=== PATIENT | female | born 1980 | race Caucasian/White ===

== ENCOUNTER 2019-11-15 16:09 | Emergency (ER) | payer OTHER, SELFPAY ==
[2019-11-15 16:55] VITALS: BP 125/87; PULSE 89; RESP 22; TEMP 37.2; O2SAT 100
--- NOTE | 2019-11-15 18:11 | ED.GENADULT ---
HPI - General Adult General Chief complaint: Upper Respiratory Infection Stated complaint: asthma issues Time Seen by Provider: 11/15/19 18:11 Source: patient and RN notes reviewed Mode of arrival: ambulatory Limitations: no limitations History of Present Illness HPI narrative: 39-year-old female presents with complains of dry cough and wheezing for 7 days. Zyrtec, Singulair, Albuterol nebulizer, and inhaler with little relief. History of Asthma and Allergies. Three-weeks ago completed a round of steroids with relief. Constant dry cough with chest congestion. Rhinorrhea and nasal congestion. Denies sore throat. No high fevers, drooling, neck or throat swelling. No chest pain or shortness of breath. Exacerbation factors consist of smoke exposure. Denies nausea, vomiting, and abdominal pain. Tolerating liquids well. Lilly denies being , LMP 3 weeks ago. Some parts of this dictation were generated by voice recognition software and may contain typographical and/or grammatical inaccuracies. Related Data Home Medications Medication Instructions Recorded Confirmed Zyrtec 11/15/19 albuterol sulfate 11/15/19 cyclobenzaprine 11/15/19 fluticasone propionate 11/15/19 montelukast 11/15/19 Allergies Allergy/AdvReac Type Severity Reaction Status Date / Time No Known Allergies Allergy Verified 11/15/19 17:23 Review of Systems Review of Systems: Narrative: CONSTITUTIONAL: Denies fever, chills, sweats. EYES: Denies visual changes, redness, discharge. ENT: Denies rhinorrhea, congestion, sore throat, otalgia. CARDIOVASCULAR: Denies chest pain, palpitations, edema. RESPIRATORY: Denies dyspnea. Complains of dry cough, wheezing. GASTROINTESTINAL: Denies abdominal pain, nausea, vomiting, diarrhea. GENITOURINARY: Denies dysuria, hematuria, abnormal discharge. SKIN: Denies rash or itching. MUSCULOSKELETAL: Denies acute back pain, joint pain, or myalgia. NEUROLOGIC: Denies numbness or focal weakness. PSYCHIATRIC: Denies anxiety or depression. All systems reviewed & are unremarkable except as noted in HPI and below. [facility] Past Medical History Medical History (Updated 11/16/19 @ 00:00 by Antonia Silverio) Allergies Asthma Surgical History Surgical History (Updated 11/15/19 @ 18:17 by CONCHA Fernandez) H/O section Family History Family History (Updated 11/15/19 @ 18:18 by CONCHA Fernandez) Other No significant family history Other No significant family history Social History Social History (Updated 11/15/19 @ 18:18 by CONCHA Fernandez) Smoking status: Former smoker Second hand tobacco smoke exposure: Yes Additional smoking assessment comments: Stop smoking 4 years ago Alcohol intake: current Alcohol use details: Rarely Substance use: never Occupation/Education: occupation Gender identity (if verbalized by the patient): Female Comments At time of signature, agree with nurse past medical, surgical, social, and family history. There is no relevant family history pertinent to the presenting complaint. Exam Narrative: Exam Narrative: GENERAL: This is a well-nourished, well-developed patient, in no apparent distress. Talks in full sentences and ambulates with steady gait without dyspnea. HEAD: normocephalic, atraumatic. EYES: PERRL. Sclera clear/white. Vision is grossly intact. EARS: External ears normal, auditory canals clear and without drainage, TMs normal without perforation. Hearing grossly intact. NOSE: External nose normal with no obvious nasal discharge, nares with mild redness and enlarged turbinates, clear rhinorrhea. THROAT: Mucous membranes moist, posterior pharynx clear. Mild erythema, tonsils normal. NECK: Neck supple, non-tender without lymphadenopathy, masses or thyromegaly. CARDIOVASCULAR: Regular rate and rhythm without murmurs, gallops, or rubs. RESPIRATORY: Wheezes to auscultation in all cunningham with decrease air movement.
[2019-11-15] MEDS: IPRATROPIUM BR 0.02% INH SOLN 0.5 MG/2.5 ML VIAL INHALATION ×2 (18:38→19:16)
[2019-11-15] MEDS: ALBUTEROL SULFATE NEB 2.5 MG/3 ML INH INHALATION ×2 (18:39→19:16)
[2019-11-15] MEDS: predniSONE 20 MG TABLET 60 MG PO (18:39)
== END 2019-11-15 20:04 | disposition home or self-care (01) ==
PROVIDERS: Emergency Provider Nurse Practitioner Family
DX: J45.909 Unspecified asthma, uncomplicated (principal); Z87.891 Personal history of nicotine dependence
CPT/HCPCS: 94640; 99204; G0463; J7512

== ENCOUNTER 2020-02-07 13:23 | Emergency (ER) | payer OTHER, SELFPAY ==
[2020-02-07 13:35] VITALS: BP 120/80; PULSE 90; RESP 16; TEMP 36.8; O2SAT 97
--- NOTE | 2020-02-07 13:57 | ED.URI ---
HPI - URI/Sore Throat General Chief Complaint: Upper Respiratory Infection Stated Complaint: sob and wheezing Time Seen by Provider: 02/07/20 13:58 Source: patient and RN notes reviewed Mode of arrival: ambulatory Limitations: no limitations History of Present Illness HPI Narrative: 39-year-old female presents with concern for wheezing and shortness of breath. Reports a history of asthma. Reports she has been using her controller medicine, her nebulizer and her rescue inhaler. Reports using her nebulizer every 4-6 hours. Reports she had an exacerbation several weeks ago for which she was on a round of prednisone. Reports she also takes antihistamines for seasonal allergies. She denies fever, body aches, rhinorrhea, nasal congestion, malaise. MD elicited complaint: other (Shortness of breath) Related Data Home Medications Medication Instructions Recorded Confirmed albuterol sulfate [ProAir HFA] 2 puff INHALATION QID PRN 02/07/20 02/07/20 cyclobenzaprine 10 mg PO TID PRN 02/07/20 02/07/20 fluticasone propion-salmeterol 1 inh INHALATION BID 02/07/20 02/07/20 ipratropium-albuterol 3 ml INHALATION QID PRN 02/07/20 02/07/20 montelukast 10 mg PO HS 02/07/20 02/07/20 Allergies Allergy/AdvReac Type Severity Reaction Status Date / Time No Known Allergies Allergy Verified 02/07/20 14:03 Review of Systems Review of Systems: Narrative: CONSTITUTIONAL: Denies malaise, chills, sweats, or fever. EYES: Denies visual changes, redness, or discharge. ENT: Denies rhinorrhea, congestion, sinus pain, otalgia and sore throat. CARDIOVASCULAR: Denies chest pain, palpitations, or edema. RESPIRATORY: Reports cough, wheezing, dyspnea. GASTROINTESTINAL: Denies abdominal pain, nausea, vomiting, diarrhea SKIN: Denies rash or itching. MUSCULOSKELETAL: Denies myalgia. NEUROLOGIC: Denies headache. All systems reviewed & are unremarkable except as noted in HPI and below PMFSH Past Medical History Medical History (Updated 02/07/20 @ 14:07 by Dayna Gandhi NP) Allergies Asthma Surgical History Surgical History (Updated 11/15/19 @ 18:17 by CONCHA Fernandez) H/O section Family History Family History (Updated 11/15/19 @ 18:18 by CONCHA Fernandez) Other No significant family history Other No significant family history Social History Social History (Updated 11/15/19 @ 18:18 by CONCHA Fernandez) Smoking status: Former smoker Second hand tobacco smoke exposure: Yes Additional smoking assessment comments: Stop smoking 4 years ago Alcohol intake: current Substance use: never Gender identity (if verbalized by the patient): Female Comments At time of signature, agree with nursing past medical, surgical, social and family history. There is no relevant family history pertinent to the presenting complaint Exam Narrative: Exam Narrative: GENERAL: Well-appearing, well-nourished, and in no acute distress. HEAD: Normocephalic EYES: PERRLA, conjunctivae clear ENT: Nares clear, turbinates pink, clear discharge. Mucous membranes moist. TM pearly gonzalez with dull light reflex bilaterally; no tragal tenderness. Oropharynx not erythematous without lesions. Tonsils not enlarged and without exudate, no drooling, no hoarseness, no trismus, uvula midline. NECK: Supple. CHEST: Scattered inspiratory and expiratory wheeze, otherwise clear to auscultation, breath sounds equal. No rhonchi, rales, or stridor. No respiratory distress, speaks in full sentences. HEART: Regular rate and rhythm. No murmur heard. SKIN: Warm, dry, no rash. NEURO: Alert and oriented x3. PSYCH: Normal mood and affect Course Course Emergency Course: Patient is aware of diagnosis, understands and agrees to treatment plan. Anticipatory guidance given. Patient agrees to follow-up as directed and is aware of reasons to seek care at the emergency department. Portions of this record may have been created with voice recognition software Vital Signs
== END 2020-02-07 14:10 | disposition home or self-care (01) ==
PROVIDERS: Emergency Provider Nurse Practitioner
DX: J45.41 Moderate persistent asthma with (acute) exacerbation (principal); Z87.891 Personal history of nicotine dependence
CPT/HCPCS: 99213; G0463

== ENCOUNTER 2020-04-14 11:23 | Emergency (ER) | payer OTHER, SELFPAY ==
[2020-04-14 11:32] VITALS: BP 129/91; PULSE 88; RESP 14; TEMP 36.8; O2SAT 99
--- NOTE | 2020-04-14 11:50 | ED.URI ---
HPI - URI/Sore Throat General Chief Complaint: Upper Respiratory Infection Stated Complaint: Asthma Time Seen by Provider: 04/14/20 11:50 Source: patient Mode of arrival: ambulatory Limitations: no limitations History of Present Illness HPI Narrative: Lilly Gordon is a 39 yo female with a PMH of asthma who comes to express care with asthma exacerbation x 4 days. She has had as well for a couple of years and is taking inhalers on a regular basis. With her doctors office because about 3-4 times a year with seasonal changes she develops asthma exacerbation. Doctors office told her to go to the ER or come to an urgent care to try to get steroids Related Data Home Medications Medication Instructions Recorded Confirmed albuterol sulfate [ProAir HFA] 2 puff INHALATION QID PRN 02/07/20 04/14/20 cyclobenzaprine 10 mg PO TID PRN 02/07/20 04/14/20 fluticasone propion-salmeterol 1 inh INHALATION BID 02/07/20 04/14/20 ipratropium-albuterol 3 ml INHALATION QID PRN 02/07/20 04/14/20 montelukast 10 mg PO HS 02/07/20 04/14/20 cetirizine 10 mg PO DAILY 04/14/20 04/14/20 Allergies Allergy/AdvReac Type Severity Reaction Status Date / Time No Known Allergies Allergy Verified 04/14/20 11:38 Review of Systems Review of Systems: Narrative: CONSTITUTIONAL: Denies fever, chills, sweats. EYES: Denies visual changes, redness, discharge. ENT: Denies rhinorrhea, congestion, sore throat, otalgia. CARDIOVASCULAR: Denies chest pain, palpitations, edema. RESPIRATORY: Denies dyspnea, has wheezing, mild dry cough GASTROINTESTINAL: Denies abdominal pain, nausea, vomiting, diarrhea. GENITOURINARY: Denies dysuria, hematuria, abnormal discharge SKIN: Denies rash or itching. NEUROLOGIC: Denies numbness, or focal weakness. PSYCHIATRIC: Denies anxiety or depression. [facility] Past Medical History Medical History Allergies Asthma Surgical History Surgical History H/O section Family History Family History Other No significant family history Other No significant family history Social History Social History Smoking status: Former smoker Second hand tobacco smoke exposure: Yes Additional smoking assessment comments: Stop smoking 4 years ago Alcohol intake: current Substance use: never Gender identity (if verbalized by the patient): Female Comments At time of signature, I agree with nursing past medical, surgical, social and family history. There is no relevant family history pertinent to the presenting complaint. Blood pressure elevated patient is having an asthma attack and feels that shortness of breath and anxiety is causing increased BP. Sees PCP regularly Exam Narrative: Exam Narrative: GENERAL: This is a well-nourished, well-developed patient, in mild distress. HEAD: normocephalic, atraumatic. EYES: Sclera clear/white. Vision is grossly intact. EARS: External ears normal, Hearing grossly intact. NOSE: External nose normal without nasal discharge, nares without redness, no rhinorrhea. THROAT: Mucous membranes moist, NECK: Neck supple, non-tender CARDIOVASCULAR: Regular rate and rhythm without murmurs, gallops, or rubs. RESPIRATORY: Coarse to auscultation. Fine wheezing in all cunningham, no rales, or rhonchi. GASTROINTESTINAL: Abdomen soft, non-tender, SKIN: warm, intact with no suspicious lesions or rash, good texture and turgor. NEURO: awake, alert, and oriented to person, place and time. There were no obvious focal neurologic abnormalities. Steady gait EXTREMITIES: Normal range of motion. BACK: Nontender without deformity Course Course Emergency Course: Given 60 mg of prednisone p.o. here Started on prednisone 40 mg p.o. daily x5 days Patient continue with other inhalers and rescue inhal
[2020-04-14] MEDS: predniSONE 20 MG TABLET 60 MG PO (11:56)
== END 2020-04-14 12:02 | disposition home or self-care (01) ==
PROVIDERS: Emergency Provider Nurse Practitioner
DX: J45.909 Unspecified asthma, uncomplicated (principal)
CPT/HCPCS: 99213; G0463; J7512

== ENCOUNTER 2020-05-07 12:13 | Emergency (ER) | payer OTHER, SELFPAY ==
[2020-05-07 12:22] VITALS: BP 113/73; PULSE 95; RESP 16; TEMP 36.9; O2SAT 97
--- NOTE | 2020-05-07 12:46 | ED.GENADULT ---
HPI - General Adult General Chief complaint: Upper Respiratory Infection Stated complaint: SOB Time Seen by Provider: 05/07/20 12:46 Source: patient and RN notes reviewed Mode of arrival: ambulatory Limitations: no limitations History of Present Illness HPI narrative: This is a 39 years old female presented office for evaluations of asthma flare for the last two days. She is unsure what triggered her symptoms. She does housecleaning for living. There it possible that her asthma triggered by dust. One of her client has dog; but she has been cleaning his house for years with no problem. She has been using her prescribed medication for asthma. She attempt to call her doctor for follow-up but she does not have an appointment for an another week or two from today. Related Data Home Medications Medication Instructions Recorded Confirmed albuterol sulfate [ProAir HFA] 2 puff INHALATION QID PRN 02/07/20 05/07/20 fluticasone propion-salmeterol 1 inh INHALATION BID 02/07/20 05/07/20 ipratropium-albuterol 3 ml INHALATION QID PRN 02/07/20 05/07/20 montelukast 10 mg PO HS 02/07/20 05/07/20 cetirizine 10 mg PO DAILY 04/14/20 05/07/20 Allergies Allergy/AdvReac Type Severity Reaction Status Date / Time No Known Allergies Allergy Verified 05/07/20 12:34 Review of Systems Review of Systems: Narrative: CONSTITUTIONAL: Denies fever, chills EYES: Denies visual changes, redness, discharge. ENT: Denies rhinorrhea, congestion, sore throat CARDIOVASCULAR: Denies chest pain, palpitation RESPIRATORY: Reports dyspnea, wheezing GASTROINTESTINAL: Denies abdominal pain, nausea, vomiting, diarrhea. SKIN: Denies rash MUSCULOSKELETAL: Denies acute back pain NEUROLOGIC: Denies lightheaded All other systems reviewed are negative, except as documented in HPI. [facility] Past Medical History Medical History Allergies Asthma Surgical History Surgical History H/O section Family History Family History Other No significant family history Other No significant family history Social History Social History Smoking status: Former smoker Second hand tobacco smoke exposure: Yes Additional smoking assessment comments: Stop smoking 4 years ago Alcohol intake: current Substance use: never Gender identity (if verbalized by the patient): Female Comments At time of signature, I agree with nursing past medical, surgical, social and family history. There is no relevant family history pertinent to the presenting complaint. Exam Narrative: Exam Narrative: GENERAL: This is a well-nourished, well-developed patient, in no apparent distress. EARS: External ears normal, auditory canals clear and without drainage, TMs normal without perforation. Hearing grossly intact. NOSE: External nose normal with no obvious nasal discharge, nares without redness, no rhinorrhea. THROAT: Mucous membranes moist, posterior pharynx clear. NECK: Neck supple, non-tender without lymphadenopathy, masses or thyromegaly. CARDIOVASCULAR: Regular rate and rhythm without murmurs, gallops, or rubs. RESPIRATORY: Expiratory wheezing noted throughout. Breath sounds equal bilaterally. No use of accessory muscle. Patient able to talk in complete sentences. GASTROINTESTINAL: Abdomen soft, non-tender, nondistended. Bowel sounds are active. No hepato-splenomegaly, or palpable masses. No guarding. SKIN: warm, intact with no suspicious lesions or rash, good texture and turgor. NEURO: awake, alert, and oriented to person, place and time. There were no obvious focal neurologic abnormalities. Steady gait [place] Coma Scale Eye Opening: Spontaneous 4 [place] Coma Scale Motor: Obeys Commands 6 [place] Coma Scale Verbal: Oriented 5 Course Vital Signs Vital signs:
== END 2020-05-07 13:01 | disposition home or self-care (01) ==
PROVIDERS: Emergency Provider Nurse Practitioner
DX: J45.21 Mild intermittent asthma with (acute) exacerbation (principal)
CPT/HCPCS: 99213; G0463

== ENCOUNTER 2020-09-19 16:56 | Emergency (ER) | payer OTHER, SELFPAY ==
[2020-09-19 17:00] VITALS: BP 121/88; PULSE 94; RESP 20; TEMP 36.4; O2SAT 98
--- NOTE | 2020-09-19 17:30 | ED.SOB ---
HPI - SOB/Dyspnea General Chief Complaint: Shortness of Breath/Dyspnea Stated Complaint: wheezing/congested Time Seen by Provider: 09/19/20 17:30 Source: patient Mode of arrival: ambulatory Limitations: no limitations History of Present Illness HPI Narrative: 39 year old female who presents to [facility] care with complaints of short of breath with wheezing since yesterday with history of asthma, patient states about 2 hours prior to arrival she did do an breathing treatment using Atrovent at home which did help some. Patient denies any fever chills or sweats, occasional cough with some light yellow mucus states no sore throat, ear pain or acute nasal drainage or congestion, afebrile. Respirations 20 at rest with SaO2 98% on room air. MD elicited complaint: shortness of breath Pertinent past history: asthma Onset (ago): day(s) (1) Severity: moderate Exacerbating factors: exertion Known history of: asthma Associated symptoms: wheezing Treatment prior to arrival: other (breathing treatment) Related Data Home Medications Medication Instructions Recorded Confirmed albuterol sulfate [ProAir HFA] 2 puff INHALATION QID PRN 02/07/20 09/19/20 montelukast 10 mg PO HS 02/07/20 09/19/20 cetirizine 10 mg PO DAILY 04/14/20 09/19/20 albuterol sulfate 2.5 mg CONTINUOUS NEBULIZATION 09/19/20 09/19/20 Q4-6H PRN cholecalciferol (vitamin D3) 25 mcg PO DAILY 09/19/20 09/19/20 [Vitamin D3] citalopram 20 mg PO DAILY 09/19/20 09/19/20 ergocalciferol (vitamin D2) 1,250 mcg PO WEEKLY 09/19/20 09/19/20 fluticasone propion-salmeterol 1 inh INHALATION Q12H 09/19/20 09/19/20 [Wixela Inhub] ipratropium bromide 0.5 ml CONTINUOUS NEBULIZATION 09/19/20 09/19/20 Q4-6H PRN Allergies Allergy/AdvReac Type Severity Reaction Status Date / Time No Known Allergies Allergy Verified 09/19/20 17:14 Review of Systems Review of Systems: Narrative: CONSTITUTIONAL: Denies fever, chills, or sweats. EYES: Denies visual changes, redness, or discharge. ENT: Denies rhinorrhea, congestion, sore throat, or otalgia. CARDIOVASCULAR: Denies chest pain, palpitations, or edema. RESPIRATORY: occasional cough with some wheezing or dyspnea. GASTROINTESTINAL: Denies abdominal pain, nausea, vomiting, or diarrhea. GENITOURINARY: Denies dysuria or hematuria. SKIN: Denies rash or itching. MUSCULOSKELETAL: Denies back pain, joint pain, or myalgia. NEUROLOGIC: Denies headache, numbness, or weakness. PSYCHIATRIC: Denies anxiety or depression. All systems reviewed & are unremarkable except as noted in HPI and below PMFSH Past Medical History Medical History (Updated 09/19/20 @ 18:21 by Yelitza Horton NP) Allergies Asthma Surgical History Surgical History (Updated 09/19/20 @ 17:32 by Yelitza Horton NP) H/O section Hx of tonsillectomy Family History Family History Other No significant family history Other No significant family history Social History Social History Smoking status: Former smoker Second hand tobacco smoke exposure: Yes Additional smoking assessment comments: Stop smoking 4 years ago Alcohol intake: current Substance use: never Gender identity (if verbalized by the patient): Female Comments At time of signature, agree with nursing past medical, surgical, social and family history. There is no relevant family history pertinent to the presenting complaint Exam Narrative: Exam Narrative: GENERAL: Well-appearing, well-nourished, and in no acute distress. HEAD: Normocephalic, atraumatic. EYES: PERRLA and EOMI. ENT: Nares clear, no rhinorrhea or epistaxis. Mucous membranes moist.TM's normal with good light reflex, throat pink with no acute redness or swelling,no enlargement of tonsils NECK: Supple.no lymphadenopathy CHEST: decreased breath sounds with occasional scattered wheeze on auscultation. No acute respira
[2020-09-19] MEDS: IPRATROPIUM BR 0.02% INH SOLN 0.5 MG/2.5 ML VIAL INHALATION (17:46)
[2020-09-19] MEDS: ALBUTEROL SULFATE NEB 2.5 MG/3 ML INH INHALATION (17:46)
[2020-09-19 18:27] VITALS: O2SAT 97
== END 2020-09-19 18:27 | disposition home or self-care (01) ==
PROVIDERS: Emergency Provider Registered Nurse; PCP Nurse Practitioner Adult Health
DX: J45.41 Moderate persistent asthma with (acute) exacerbation (principal); Z87.891 Personal history of nicotine dependence
CPT/HCPCS: 94640; 99213; G0463

== ENCOUNTER 2020-11-15 11:24 | Emergency (ER) | payer OTHER, SELFPAY ==
--- NOTE | ~2020-11-15 | XR_ITS ---
EXAMINATION: XR chest 2V 11/15/2020 11:58 INDICATION: Wheezing and shortness of breath. Asthma. PROCEDURE: 2 view chest COMPARISON: No prior studies for comparison. FINDINGS: The lungs are clear. The cardiomediastinal silhouette is within normal limits. There are no pleural effusions. There is no pneumothorax suspected. IMPRESSION: 1: NO ACUTE CARDIOPULMONARY DISEASE. Reviewed, dictated and finalized at location B. [employer]
[2020-11-15 11:40] VITALS: BP 132/82; PULSE 95; RESP 16; TEMP 36.7; O2SAT 97
--- NOTE | 2020-11-15 12:01 | ED.URI ---
HPI - URI/Sore Throat General Chief Complaint: Upper Respiratory Infection Stated Complaint: Cough/Rattling in Chest Source: patient Mode of arrival: ambulatory Limitations: no limitations History of Present Illness HPI Narrative: Patient is a 40-year-old female who presents complaining of increased wheezing x1 day. Patient reports a history of asthma. Patient reports using nebulizer as well as inhalers as directed. Patient reports increased wheezing with dry cough over the past day. She reports asthma exacerbations in the past, denies hospitalizations for asthma in the past. She denies fever, chills, sore throat, body aches chest pain or shortness of breath. MD elicited complaint: other (Asthma) Related Data Home Medications Medication Instructions Recorded Confirmed albuterol sulfate [ProAir HFA] 2 puff INHALATION QID PRN 02/07/20 11/15/20 montelukast 10 mg PO HS 02/07/20 11/15/20 cetirizine 10 mg PO DAILY 04/14/20 11/15/20 albuterol sulfate 2.5 mg CONTINUOUS NEBULIZATION 09/19/20 11/15/20 Q4-6H PRN cholecalciferol (vitamin D3) 25 mcg PO DAILY 09/19/20 11/15/20 [Vitamin D3] citalopram 20 mg PO DAILY 09/19/20 11/15/20 ergocalciferol (vitamin D2) 1,250 mcg PO WEEKLY 09/19/20 11/15/20 fluticasone propion-salmeterol 1 inh INHALATION Q12H 09/19/20 11/15/20 [Wixela Inhub] ipratropium bromide 0.5 ml CONTINUOUS NEBULIZATION 09/19/20 11/15/20 Q4-6H PRN Allergies Allergy/AdvReac Type Severity Reaction Status Date / Time No Known Allergies Allergy Verified 11/15/20 11:48 Review of Systems Review of Systems: Narrative: CONSTITUTIONAL: Denies fever, chills, or sweats. EYES: Denies visual changes, redness, or discharge. ENT: Denies rhinorrhea, congestion, sore throat, or otalgia. CARDIOVASCULAR: Denies chest pain, palpitations, or edema. RESPIRATORY: Reports cough and wheezing GASTROINTESTINAL: Denies abdominal pain, nausea, vomiting, or diarrhea. GENITOURINARY: Denies dysuria or hematuria. SKIN: Denies rash or itching. MUSCULOSKELETAL: Denies back pain, joint pain, or myalgia. NEUROLOGIC: Denies headache, numbness, dizziness, or weakness. PSYCHIATRIC: Denies anxiety or depression. [facility] Past Medical History Medical History Allergies Asthma Surgical History Surgical History H/O section Hx of tonsillectomy Family History Family History Other No significant family history Other No significant family history Social History Social History Smoking status: Former smoker Second hand tobacco smoke exposure: Yes Additional smoking assessment comments: Stop smoking 4 years ago Alcohol intake: current Substance use: never Gender identity (if verbalized by the patient): Female Comments At the time of signature, I have reviewed and agree with nursing past medical, surgical, social, and family history unless otherwise noted. Please see nursing chart for further information. There is no relevant family history pertinent to the presenting complaint. Exam Narrative: Exam Narrative: GENERAL: Well-appearing, well-nourished, and in no acute distress. HEAD: Normocephalic, atraumatic. EYES: EOMI. No redness or drainage. Conjunctiva are normal. ENT: Mucous membranes pink and moist. NECK: Supple. No lymphadenopathy. CHEST: No respiratory distress. Diminished lung sounds bilaterally, right upper and lower audible wheeze HEART: Regular rate and rhythm. EXTREMITIES: Normal range of motion. No edema. SKIN: Warm, dry, no rash. NEURO: No focal deficits. Alert and oriented x3. Gait steady. PSYCH: Normal affect. No signs of depression or anxiety. Course Vital Signs Vital signs: Vital Signs Temperature 36.7 C 11/15/20 11:40 Pulse Rate 95 11/15/20 11:40 Respiratory R
[2020-11-16 18:19] LABS: SARS-CoV-2 RNA PCR Negative
== END 2020-11-15 12:20 | disposition home or self-care (01) ==
PROVIDERS: Emergency Provider Nurse Practitioner; PCP Nurse Practitioner Adult Health
DX: J45.901 Unspecified asthma with (acute) exacerbation (principal); Z20.822 Contact with and (suspected) exposure to COVID-19; Z87.891 Personal history of nicotine dependence
CPT/HCPCS: 71046; 99213; C9803; G0463; U0003; U0005

== ENCOUNTER 2022-04-26 11:18 | Emergency (ER) | payer OTHER, SELFPAY ==
[2022-04-26 11:22] VITALS: BP 137/87; PULSE 95; RESP 18; TEMP 36.7; O2SAT 95
--- NOTE | 2022-04-26 11:33 | ED.URI ---
HPI - URI/Sore Throat General Chief Complaint: Upper Respiratory Infection Stated Complaint: wheezing/hx of asthma Time Seen by Provider: 04/26/22 11:32 Source: patient and RN notes reviewed Mode of arrival: ambulatory Limitations: no limitations History of Present Illness HPI Narrative: 41-year-old female with a history of eosinophilic asthma presented for complaint of increasing shortness of breath and wheezing since last night. Endorses waking in the night requiring her rescue inhaler, and states this morning while getting ready for work she became more short of breath and felt she needed to rest; she took an albuterol neb treatment at that time. She endorses she was hospitalized last month for asthma exacerbation. Has been having exacerbations approximately every 3 months for which she is following with manager human resources and is scheduled next month. Compliant with Wyxela and allergy medications. MD elicited complaint: cough Related Data Home Medications Medication Instructions Recorded Confirmed albuterol sulfate 90 mcg/actuation 2 puff inhalation QID PRN 02/07/20 04/26/22 aerosol inhaler (ProAir HFA) Shortness Of Breath Or Wheezing montelukast 10 mg tablet 10 mg PO HS 02/07/20 04/26/22 cetirizine 10 mg capsule 10 mg PO DAILY 04/14/20 04/26/22 albuterol sulfate 2.5 mg/3 mL 2.5 mg continuous nebulization 09/19/20 04/26/22 (0.083 %) solution for nebulization Q4-6H PRN Shortness Of Breath Or Wheezing cholecalciferol (vitamin D3) 25 25 mcg PO DAILY 09/19/20 04/26/22 mcg (1,000 unit) tablet (Vitamin D3) citalopram 20 mg tablet 20 mg PO DAILY 09/19/20 04/26/22 ergocalciferol (vitamin D2) 1,250 1,250 mcg PO WEEKLY 09/19/20 04/26/22 mcg (50,000 unit) capsule fluticasone 500 mcg-salmeterol 50 1 inh inhalation Q12H 09/19/20 04/26/22 mcg/dose blistr powdr for inhalation (Wixela Inhub) ipratropium bromide 0.02 % 0.5 ml continuous nebulization 09/19/20 04/26/22 solution for inhalation Q4-6H PRN Shortness Of Breath Or Wheezing citalopram 20 mg tablet 20 mg PO DAILY 04/26/22 04/26/22 fluticasone 250 mcg-salmeterol 50 1 inh inhalation Q12H 04/26/22 04/26/22 mcg/dose blistr powdr for inhalation (Lorenatnyator Inhub) Allergies Allergy/AdvReac Type Severity Reaction Status Date / Time No Known Allergies Allergy Verified 04/26/22 11:35 Review of Systems Review of Systems: CONSTITUTIONAL:Denies malaise, chills, sweats, fever EYES: Denies visual changes, redness, or discharge ENT: Denies rhinorrhea, congestion, sinus pain, otalgia, sore throat CARDIOVASCULAR: Denies chest pain, palpitations, edema RESPIRATORY: Denies cough, post nasal drainage. Reports dyspnea GASTROINTESTINAL: Denies abdominal pain, nausea, vomiting, diarrhea SKIN: Denies rash or itching MUSCULOSKELETAL: denies myalgia NEUROLOGIC: Denies headache PMFSH Past Medical History Medical History Allergies Asthma Surgical History Surgical History H/O section Hx of tonsillectomy Family History Family History Other No significant family history Other No significant family history Social History Social History Smoking status: Former smoker Second hand tobacco smoke exposure: Yes Additional smoking assessment comments: Stop smoking 4 years ago Alcohol intake: current Alcohol use details: Rarely Substance use: never Gender identity (if verbalized by the patient): Female Exam Narrative: GENERAL: well-appearing, nontoxic no acute distress. HEAD: Normocephalic EYES: conjunctivae clear ENT: Mucous membranes moist. CHEST: Appears labored, Lungs diminished with audible exp wheezing and inspiratory and expiratory wheezing throughout all cunningham. No respiratory distress, speaks in full sentences
[2022-04-26] MEDS: ALBUTEROL SULFATE NEB 2.5 MG/3 ML INH INHALATION (11:46)
[2022-04-26] MEDS: IPRATROPIUM BR 0.02% INH SOLN 0.5 MG/2.5 ML VIAL INHALATION (11:46)
[2022-04-26 12:16] VITALS: RESP 16; O2SAT 97
== END 2022-04-26 12:26 | disposition home or self-care (01) ==
PROVIDERS: Emergency Provider Nurse Practitioner Family
DX: J45.901 Unspecified asthma with (acute) exacerbation (principal); Z87.891 Personal history of nicotine dependence
CPT/HCPCS: 94640; 99213; G0463

== ENCOUNTER 2022-12-29 16:51 | Emergency (ER) | payer OTHER, SELFPAY ==
[2022-12-29 16:56] VITALS: BP 117/79; PULSE 87; RESP 20; TEMP 37.2; O2SAT 96
--- NOTE | 2022-12-29 17:08 | ED.ASTHMA ---
HPI - Asthma General Chief Complaint: Asthma Stated Complaint: Asthma acting up Time Seen by Provider: 12/29/22 17:09 History of Present Illness HPI Narrative: PATIENT PRESENTS WITH AN ASTHMA FLARE , PATIENT REPORTS HER SYMPTOMS STARTED YESTERDAY , SINCE THEN SHE HAS BEEN DOING HER ABUTERAL NEBS EVERY 4 HOURS PRESCRIBED. NO RESPIRATORY DISTRESS NO FEVER. Related Data Home Medications Medication Instructions Recorded Confirmed albuterol sulfate 90 mcg/actuation 2 puff inhalation QID PRN 02/07/20 12/29/22 aerosol inhaler (ProAir HFA) Shortness Of Breath Or Wheezing montelukast 10 mg tablet 10 mg PO HS 02/07/20 12/29/22 cetirizine 10 mg capsule 10 mg PO DAILY 04/14/20 12/29/22 cholecalciferol (vitamin D3) 25 25 mcg PO DAILY 09/19/20 12/29/22 mcg (1,000 unit) tablet (Vitamin D3) citalopram 20 mg tablet 20 mg PO DAILY 09/19/20 12/29/22 ergocalciferol (vitamin D2) 1,250 1,250 mcg PO WEEKLY 09/19/20 12/29/22 mcg (50,000 unit) capsule fluticasone 500 mcg-salmeterol 50 1 inh inhalation Q12H 09/19/20 12/29/22 mcg/dose blistr powdr for inhalation (Wixela Inhub) Fasenra IV USEASDIRECTD 12/29/22 fluticasone fur. 200 mcg-umeclid 1 ea inhalation DIRECTED 12/29/22 12/29/22 62.5 mcg-vilant 25 mcg inhalat.powder (Trelegy Ellipta) Allergies Allergy/AdvReac Type Severity Reaction Status Date / Time No Known Allergies Allergy Verified 12/29/22 16:53 Review of Systems Review of Systems: CONSTITUTIONAL: DENIES FEVER, CHILLS, OR SWEATS. EYES: DENIES VISUAL CHANGES, REDNESS, OR DISCHARGE. ENT: DENIES RHINORRHEA, CONGESTION, SORE THROAT, OR OTALGIA. CARDIOVASCULAR: DENIES CHEST PAIN, PALPITATIONS, OR EDEMA. RESPIRATORY: DENIES COUGH OR DYSPNEA. GASTROINTESTINAL: DENIES ABDOMINAL PAIN, NAUSEA, VOMITING, OR DIARRHEA. GENITOURINARY: DENIES DYSURIA OR HEMATURIA. SKIN: DENIES RASH OR ITCHING. MUSCULOSKELETAL: DENIES BACK PAIN, JOINT PAIN, OR MYALGIA. NEUROLOGIC: DENIES HEADACHE, NUMBNESS, OR WEAKNESS. PSYCHIATRIC: DENIES ANXIETY OR DEPRESSION. [facility] Past Medical History Medical History Allergies Asthma Surgical History Surgical History H/O section Hx of tonsillectomy Family History Family History Other No significant family history Other No significant family history Social History Social History Smoking status: Former smoker Second hand tobacco smoke exposure: Yes Additional smoking assessment comments: Stop smoking 4 years ago Alcohol intake: current Alcohol use details: Rarely Substance use: never Occupation/Education: occupation Gender identity (if verbalized by the patient): Female Comments AT TIME OF SIGNATURE, AGREE WITH NURSING PAST MEDICAL, SURGICAL, SOCIAL AND FAMILY HISTORY. THERE IS NO RELEVANT FAMILY HISTORY PERTINENT TO THE PRESENTING COMPLAINT Exam Narrative: GENERAL: WELL-APPEARING, WELL-NOURISHED, AND IN NO ACUTE DISTRESS. HEAD: NORMOCEPHALIC, ATRAUMATIC. EYES: PERRLA AND EOMI. ENT: NARES CLEAR, NO RHINORRHEA OR EPISTAXIS. MUCOUS MEMBRANES MOIST. NECK: SUPPLE. CHEST: CLEAR TO AUSCULTATION. NO RESPIRATORY DISTRESS. HEART: REGULAR RATE AND RHYTHM. NO MURMUR HEARD. NORMAL PERIPHERAL PULSES. ABDOMEN: SOFT, NONTENDER, NONDISTENDED, NORMAL ACTIVE BOWEL SOUNDS. EXTREMITIES: NORMAL RANGE OF MOTION. NO EDEMA. SKIN: WARM, DRY, NO RASH. NEURO: NO FOCAL DEFICITS. ALERT AND ORIENTED X3. JESÚS COMA SCALE EYE OPENING: SPONTANEOUS 4 JESÚS COMA SCALE MOTOR: OBEYS COMMANDS 6 JESÚS COMA SCALE VERBAL: ORIENTED 5 JESÚS COMA SCALE TOTAL 15 Course Course Level of Care: Express Care Visit Vital Signs Vital signs: Vital Signs Temperature 37.2 C 12/29/22 16:56 Pulse Rate 87 12/29/22 16:56 Respiratory Rate 20 12/29/22 16:
[2022-12-29] MEDS: methylPREDNISolone SOD SUCC 125 MG VIAL IM (17:17)
== END 2022-12-29 17:20 | disposition home or self-care (01) ==
PROVIDERS: Emergency Provider Nurse Practitioner Family; PCP Nurse Practitioner Family
DX: J45.901 Unspecified asthma with (acute) exacerbation (principal); Z87.891 Personal history of nicotine dependence
CPT/HCPCS: 96372; 99213; G0463; J2930

== ENCOUNTER 2023-01-30 14:39 | Emergency (ER) | payer OTHER, SELFPAY ==
[2023-01-30 14:43] VITALS: BP 122/81; PULSE 96; RESP 16; TEMP 36.6; O2SAT 96
--- NOTE | 2023-01-30 15:06 | ED.URI ---
HPI - URI/Sore Throat General Chief Complaint: Upper Respiratory Infection Stated Complaint: asthma issues Time Seen by Provider: 01/30/23 15:11 Source: patient Mode of arrival: ambulatory Limitations: no limitations History of Present Illness HPI Narrative: 42-year-old female with a history of eosinophilic asthma presenting for complaint of concern for asthma exacerbation. She endorses increased shortness of breath and wheezing since yesterday. Patient uses her rescue inhaler as needed and using Trelegy and taking allergy medications as directed. Also has nebulizer at home and uses as needed. Has been having exacerbations approximately every 3 months for which she is following with service desk analyst and is scheduled next week. Related Data Home Medications Medication Instructions Recorded Confirmed albuterol sulfate 90 mcg/actuation 2 puff inhalation QID PRN 02/07/20 01/30/23 aerosol inhaler (ProAir HFA) Shortness Of Breath Or Wheezing montelukast 10 mg tablet 10 mg PO HS 02/07/20 01/30/23 cetirizine 10 mg capsule 10 mg PO DAILY 04/14/20 01/30/23 cholecalciferol (vitamin D3) 25 25 mcg PO DAILY 09/19/20 01/30/23 mcg (1,000 unit) tablet (Vitamin D3) citalopram 20 mg tablet 20 mg PO DAILY 09/19/20 01/30/23 ergocalciferol (vitamin D2) 1,250 1,250 mcg PO WEEKLY 09/19/20 01/30/23 mcg (50,000 unit) capsule benralizumab 30 mg/mL subcutaneous See Rx Instructions .Route .COMPLEX 01/30/23 01/30/23 auto-injector (Fasenra Pen) ipratropium bromide 0.02 % 0.5 mg inhalation Q6H PRN sob 01/30/23 01/30/23 solution for inhalation Allergies Allergy/AdvReac Type Severity Reaction Status Date / Time No Known Allergies Allergy Verified 01/30/23 15:03 Review of Systems Review of Systems: CONSTITUTIONAL: Denies body aches, fever, chills, or sweats. EYES: Denies visual changes, redness, or discharge. ENT: Denies rhinorrhea, congestion, sore throat, or otalgia. CARDIOVASCULAR: Denies chest pain, palpitations, or edema. RESPIRATORY: Reports sob, wheezing. GASTROINTESTINAL: Denies abdominal pain, nausea, vomiting, or diarrhea. SKIN: Denies rash, itching, or wounds. MUSCULOSKELETAL: Denies back pain, joint pain, or myalgia. NEUROLOGIC: Denies headache, numbness, tingling, or weakness. All systems reviewed & are unremarkable except as noted in HPI and below PMFSH Past Medical History Medical History Allergies Asthma Surgical History Surgical History H/O section Hx of tonsillectomy Family History Family History Other No significant family history Other No significant family history Social History Social History Smoking status: Former smoker Second hand tobacco smoke exposure: Yes Additional smoking assessment comments: Stop smoking 4 years ago Alcohol intake: current Alcohol use details: Rarely Substance use: never Occupation/Education: occupation Gender identity (if verbalized by the patient): Female Comments At time of signature, I have reviewed and agree with nursing past medical, surgical, social and family history unless otherwise noted. Please see nursing chart for further information. There is no relevant family history pertinent to the presenting complaint Exam Narrative: GENERAL: Well-appearing, in no acute distress. EYES: EOMI. No redness or drainage. Conjunctivae normal. ENT: Mucous membranes pink and moist. No rhinorrhea. TMs normal bilaterally. Throat normal. Uvula midline. NECK: Normal AROM. Supple. CHEST: No respiratory distress. Diminished throughout with Wheezing to left lung cunningham. speaking full sentences without difficulty HEART: Regular rate and rhythm. No murmur appreciated. SKIN: Warm, dry, no rash. Capillary refill normal.
[2023-01-30] MEDS: methylPREDNISolone SOD SUCC 125 MG VIAL IM (15:27)
== END 2023-01-30 15:35 | disposition home or self-care (01) ==
PROVIDERS: Emergency Provider Nurse Practitioner Family; PCP Nurse Practitioner Family
DX: J45.901 Unspecified asthma with (acute) exacerbation (principal); Z87.891 Personal history of nicotine dependence
CPT/HCPCS: 96372; 99213; G0463; J2930

== ENCOUNTER 2023-04-29 12:41 | Emergency (ER) | payer OTHER, SELFPAY ==
[2023-04-29 12:49] VITALS: BP 112/76; PULSE 103; RESP 20; TEMP 36.8; O2SAT 98
--- NOTE | 2023-04-29 12:56 | ED.SKABFB ---
HPI - Skin/Abscess/Foreign Bdy General Chief complaint: Skin/Abscess/Foreign Body Stated complaint: hives Source: patient and RN notes reviewed History of Present Illness HPI narrative: 42 yo F presents to urgent care with complaints of an itchy rash all over. Pt states she first noticed some irritation last Saturday but it didn't get bad until Saturday. Pt states the hives will wax and wane. Pt reports using a new detergent last Saturday that she is contributing this to. Denies any new foods, meds, lotions, or soaps. Denies any SOB, vomiting, fevers, chills, chest pain, or oral swelling. Pt has been using Benadryl and topical ointments with no relief. Related Data Home Medications Medication Instructions Recorded Confirmed albuterol sulfate 90 mcg/actuation 2 puff inhalation QID PRN 02/07/20 04/29/23 aerosol inhaler (ProAir HFA) Shortness Of Breath Or Wheezing montelukast 10 mg tablet 10 mg PO HS 02/07/20 04/29/23 cetirizine 10 mg capsule 10 mg PO DAILY 04/14/20 04/29/23 cholecalciferol (vitamin D3) 25 25 mcg PO DAILY 09/19/20 04/29/23 mcg (1,000 unit) tablet (Vitamin D3) citalopram 20 mg tablet 20 mg PO DAILY 09/19/20 04/29/23 ergocalciferol (vitamin D2) 1,250 1,250 mcg PO WEEKLY 09/19/20 04/29/23 mcg (50,000 unit) capsule benralizumab 30 mg/mL subcutaneous See Rx Instructions .Route .COMPLEX 01/30/23 04/29/23 auto-injector (Fasenra Pen) ipratropium bromide 0.02 % 0.5 mg inhalation Q6H PRN sob 01/30/23 04/29/23 solution for inhalation Allergies Allergy/AdvReac Type Severity Reaction Status Date / Time No Known Allergies Allergy Verified 04/29/23 12:56 Review of Systems Review of Systems: Pertinent positives and pertinent negatives per HPI. [facility] Past Medical History Medical History Allergies Asthma Surgical History Surgical History H/O section Hx of tonsillectomy Family History Family History Other No significant family history Other No significant family history Social History Social History Smoking status: Former smoker Second hand tobacco smoke exposure: Yes Additional smoking assessment comments: Stop smoking 4 years ago Alcohol intake: current Alcohol use details: Rarely Substance use: never Occupation/Education: occupation Gender identity (if verbalized by the patient): Female Comments At the time of my signature, I reviewed and agree with the nursing past medical, surgical, social, and family history. There is no relevant family history pertinent to the patient complaint. Exam Narrative: GENERAL: This is a well-nourished, well-developed patient, in no apparent distress. HEAD: normocephalic, atraumatic. EYES: Sclera clear/white. Vision is grossly intact. EARS: External ears normal, auditory canals clear and without drainage. Hearing grossly intact. NOSE: External nose normal with no obvious nasal discharge, nares without redness, no rhinorrhea. THROAT: Mucous membranes moist, posterior pharynx clear. NECK: Neck supple, non-tender without lymphadenopathy, masses or thyromegaly. CARDIOVASCULAR: Regular rate and rhythm without murmurs, gallops, or rubs. RESPIRATORY: Clear to auscultation. Breath sounds equal bilaterally. No wheezes, rales, or rhonchi. GASTROINTESTINAL: Abdomen soft, non-tender, nondistended. Bowel sounds are active. No hepato-splenomegaly, or palpable masses. No guarding. SKIN: Generalized urticaria NEURO: awake, alert, and oriented to person, place and time. There were no obvious focal neurologic abnormalities. EXTREMITIES: No clubbing, cyanosis, or edema. No joint tenderness, effusion, or edema noted. BACK: Nontender without deformity or crepitus. No flank tenderness. Course Course Level of Care: Expr
[2023-04-29] MEDS: methylPREDNISolone SOD SUCC 125 MG VIAL IM (13:07)
== END 2023-04-29 13:14 | disposition home or self-care (01) ==
PROVIDERS: Emergency Provider Nurse Practitioner Family; PCP Nurse Practitioner Family
DX: L50.9 Urticaria, unspecified (principal); Z87.891 Personal history of nicotine dependence; J45.909 Unspecified asthma, uncomplicated
CPT/HCPCS: 96372; 99213; G0463; J2930

== ENCOUNTER 2023-10-13 10:56 | Emergency (ER) | payer OTHER, SELFPAY ==
[2023-10-13 11:00] VITALS: BP 124/85; PULSE 88; RESP 18; TEMP 36.4; O2SAT 97
--- NOTE | 2023-10-13 11:19 | ED.URI ---
HPI - URI/Sore Throat General Chief Complaint: Upper Respiratory Infection Stated Complaint: Ear Pain/Sore Throat History of Present Illness HPI Narrative: Patient presents with ear pain and a sore throat. No trouble swallowing no drooling. Patient is not taking anything [id number] for her symptoms. Patient is worried that she might have COVID she was exposed by patient last week. Related Data Home Medications Medication Instructions Recorded Confirmed albuterol sulfate 90 mcg/actuation 2 puff inhalation QID PRN 02/07/20 04/29/23 aerosol inhaler (ProAir HFA) Shortness Of Breath Or Wheezing montelukast 10 mg tablet 10 mg PO HS 02/07/20 04/29/23 cetirizine 10 mg capsule 10 mg PO DAILY 04/14/20 04/29/23 citalopram 20 mg tablet 20 mg PO DAILY 09/19/20 04/29/23 benralizumab 30 mg/mL subcutaneous See Rx Instructions .Route .COMPLEX 01/30/23 04/29/23 auto-injector (Fasenra Pen) ipratropium bromide 0.02 % 0.5 mg inhalation Q6H PRN sob 01/30/23 04/29/23 solution for inhalation azelastine 137 mcg (0.1 %) nasal intranasal 10/13/23 spray aerosol cyclobenzaprine 10 mg tablet mg 10/13/23 fluticasone fur. 200 mcg-umeclid inhalation 10/13/23 62.5 mcg-vilant 25 mcg inhalat.powder (Trelegy Ellipta) fluticasone propionate 50 intranasal 10/13/23 mcg/actuation nasal spray,suspension Allergies Allergy/AdvReac Type Severity Reaction Status Date / Time No Known Allergies Allergy Verified 10/13/23 11:00 Review of Systems Review of Systems: CONSTITUTIONAL: Denies chills, or sweats. Reports fever and generalized body aches EYES: Denies visual changes, redness, or discharge. ENT: Denies otalgia. Reports nasal congestion runny nose and sore throat CARDIOVASCULAR: Denies chest pain, palpitations, or edema. RESPIRATORY: Denies dyspnea. Reports occasional cough GASTROINTESTINAL: Denies abdominal pain, nausea, vomiting, or diarrhea. GENITOURINARY: Denies dysuria or hematuria. SKIN: Denies rash or itching. MUSCULOSKELETAL: Denies back pain, joint pain, or myalgia. Reports generalized body aches NEUROLOGIC: Denies headache, numbness, or weakness. PSYCHIATRIC: Denies anxiety or depression. [facility] Past Medical History Medical History Allergies Asthma Surgical History Surgical History H/O section Hx of tonsillectomy Family History Family History Other No significant family history Other No significant family history Social History Social History Smoking status: Former smoker Second hand tobacco smoke exposure: Yes Additional smoking assessment comments: Stop smoking 4 years ago Alcohol intake: current Alcohol use details: Rarely Substance use: never Occupation/Education: occupation Gender identity (if verbalized by the patient): Female Comments At time of signature, agree with nursing past medical, surgical, social and family history. There is no relevant family history pertinent to the presenting complaint Exam Narrative: The patient is a well-developed, well-nourished in no acute distress. SKIN: Skin is warm and dry without erythema, swelling or exudate. There is good turgor. No tenting. HEAD: Atraumatic. Normocephalic. No temporal or scalp tenderness. EYES: Moist and bright. Sclera and conjunctivae normal. No discharge. PERRLA. Extraocular motions intact. Gross visual acuity intact. EARS: Pinna is normal shape and contour. Clear external auditory canals. TM pearly uriarte with good cone of light, no erythema or suppuration. Bilateral cerumen noted no gross hearing deficit. NOSE: pink, moist mucosa with good air movement. Clear rhinorrhea without nasal flaring. Septum midline. Mouth: moist mucous membranes. THROAT; mild erythema noted to posterior
== END 2023-10-13 11:45 | disposition home or self-care (01) ==
PROVIDERS: Emergency Provider Nurse Practitioner Family; PCP Nurse Practitioner Family
DX: J06.9 Acute upper respiratory infection, unspecified (principal); Z79.899 Other long term (current) drug therapy; Z87.891 Personal history of nicotine dependence; Z20.822 Contact with and (suspected) exposure to COVID-19
CPT/HCPCS: 87081; 87426; 87804; 87880; 99213; C9803; G0463

== ENCOUNTER 2024-04-14 12:55 | Emergency (ER) | payer OTHER, SELFPAY ==
--- NOTE | 2024-04-14 12:59 | ED.URI ---
HPI - URI/Sore Throat General Chief Complaint: Upper Respiratory Infection Stated Complaint: Wheezing/asthma flare Source: patient Mode of arrival: ambulatory Limitations: no limitations History of Present Illness HPI Narrative: 43-year-old female with a history of eosinophilic asthma presenting for complaint of concern for asthma exacerbation. She endorses increased shortness of breath and wheezing x4days. Denies chest pain, heart racing, dizziness, cough or fever. Patient uses her rescue inhaler as needed and using Trelegy and taking allergy medications as directed. Also has nebulizer at home and uses as needed; has used about 3 times daily since the exacerbation onset. Reports exacerbations approximately every 3 months for which she is following with cellophane casting machine repairer and says she is scheduled next week. Former smoker. Related Data Home Medications Medication Instructions Recorded Confirmed montelukast 10 mg tablet 10 mg PO HS 02/07/20 04/14/24 citalopram 20 mg tablet 20 mg PO DAILY 09/19/20 04/14/24 ipratropium bromide 0.02 % 0.5 mg inhalation Q6H PRN sob 01/30/23 04/14/24 solution for inhalation fluticasone fur. 200 mcg-umeclid 1 ea inhalation DAILY 10/13/23 04/14/24 62.5 mcg-vilant 25 mcg inhalat.powder (Trelegy Ellipta) albuterol sulfate 90 mcg/actuation 2 puff inhalation Q4-6H PRN 04/14/24 04/14/24 aerosol inhaler Shortness Of Breath Or Wheezing ergocalciferol (vitamin D2) 1,250 1,250 mcg PO WEEKLY 04/14/24 04/14/24 mcg (50,000 unit) capsule Allergies Allergy/AdvReac Type Severity Reaction Status Date / Time No Known Allergies Allergy Verified 04/14/24 13:04 Review of Systems Review of Systems: CONSTITUTIONAL: Denies body aches, fever, chills, or sweats. EYES: Denies visual changes, redness, or discharge. ENT: Denies rhinorrhea, congestion, sore throat, or otalgia. CARDIOVASCULAR: Denies chest pain, palpitations, or edema. RESPIRATORY: Reports cough, sob, wheezing. GASTROINTESTINAL: Denies abdominal pain, nausea, vomiting, or diarrhea. SKIN: Denies rash, itching, or wounds. MUSCULOSKELETAL: Denies back pain, joint pain, or myalgia. NEUROLOGIC: Denies headache, numbness, tingling, or weakness. All systems reviewed & are unremarkable except as noted in HPI and below PMFSH Past Medical History Medical History Allergies Asthma Surgical History Surgical History H/O section Hx of tonsillectomy Family History Family History Other No significant family history Other No significant family history Social History Social History Smoking status: Former smoker Second hand tobacco smoke exposure: Yes Additional smoking assessment comments: Stop smoking 4 years ago Alcohol intake: current Alcohol use details: Rarely Substance use: never Occupation/Education: occupation Gender identity (if verbalized by the patient): Female Comments At time of signature, I have reviewed and agree with nursing past medical, surgical, social and family history unless otherwise noted. Please see nursing chart for further information. There is no relevant family history pertinent to the presenting complaint Exam Narrative: GENERAL: Well-appearing, in no acute distress. EYES: EOMI. No redness or drainage. Conjunctivae normal. ENT: Mucous membranes pink and moist. No rhinorrhea. TMs normal bilaterally. Throat normal. Uvula midline. CHEST: No respiratory distress. Lungs diminished with end expiratory Wheezing to all cunningham. No cough. Speaks full sentences. HEART: Regular rate and rhythm. No murmur appreciated. SKIN: Warm, dry, no rash. Capillary refill normal. Normal skin turgor. NEURO: Alert and oriented x3. Gait steady. PSYCH: Normal affect. Course
[2024-04-14 13:00] VITALS: BP 126/83; PULSE 96; RESP 20; TEMP 36.9; O2SAT 97
[2024-04-14] MEDS: predniSONE 20 MG TABLET 60 MG PO (13:22)
== END 2024-04-14 13:25 | disposition home or self-care (01) ==
PROVIDERS: Emergency Provider Nurse Practitioner Family; PCP Nurse Practitioner Family
DX: J45.901 Unspecified asthma with (acute) exacerbation (principal); Z87.891 Personal history of nicotine dependence
CPT/HCPCS: 99213; G0463; J7512